=== PATIENT | male | born 1990 | race African-American/Black ===

== ENCOUNTER 2021-03-30 10:27 | Emergency (ER) | payer MEDICAID ==
[~2021-03-30] VITALS: Ht 175.3 cm; Wt 60.0 kg
[2021-03-30] MEDS ORDERED: KETOROLAC 30MG/ML VIAL IM ONE (11:00)
[2021-03-30] MEDS ORDERED: NAPR-1176 MT (11:03)
[2021-03-30 11:06] VITALS: BP 148/91
== END 2021-03-30 11:22 | disposition home or self-care (01) ==
LOC: ER 10:27
DX: S16.1XXA Strain of muscle, fascia and tendon at neck level, initial encounter (principal); I10 Essential (primary) hypertension; V49.9XXA Car occupant (driver) (passenger) injured in unspecified traffic accident, initial encounter; Y93.89 Activity, other specified; Y92.89 Other specified places as the place of occurrence of the external cause; Y99.8 Other external cause status
CPT/HCPCS: 96372; 99283; J1885

== ENCOUNTER 2021-05-01 12:08 | Emergency (ER) | payer MEDICAID ==
[~2021-05-01] VITALS: Ht 172.7 cm; Wt 78.0 kg
[~2021-05-01 12:08] MED LIST: NAPR-1176 MT
[2021-05-01 12:45] LABS: CLARITY URINE CLEAR (CLEAR); COLOR URINE YELLOW (YELLOW); KETONES URINE TRACE (NEGATIVE); LEUKOCYTE ESTERASE URINE NEGATIVE (NEGATIVE); NITRITE URINE NEGATIVE (NEGATIVE); OCCULT BLOOD URINE NEGATIVE (NEGATIVE); PROTEIN URINE NEGATIVE (NEGATIVE); SPECIFIC GRAVITY URINE 1.027 (1.005-1.030)
[2021-05-01] MEDS ORDERED: DOXY100C2 MT (13:29)
[2021-05-01] MEDS ORDERED: CEFTRIAXONE SODIUM 500 MG/VIAL IM ONE (13:30)
[2021-05-01] MEDS ORDERED: DOXYCYCLINE HYCLATE 100MG CAPSULE PO ONE (13:30)
[2021-05-01] MEDS ORDERED: LIDOCAINE HCL 1% 20ML VIAL (Pyxis) INJ INFIL ONE (13:30)
[2021-05-01 13:54] VITALS: BP 130/78
[2021-05-05 04:07] LABS: NEISSERIA GONORRHOEAE NAA Negative (Negative)
== END 2021-05-01 13:55 | disposition home or self-care (01) ==
LOC: ER 12:36
DX: Z20.2 Contact with and (suspected) exposure to infections with a predominantly sexual mode of transmission (principal); I10 Essential (primary) hypertension
CPT/HCPCS: 81003; 87491; 87591; 96372; 99283; J0696; J3490